=== PATIENT | female | born 1955 | race Caucasian/White ===

== ENCOUNTER 2022-05-30 03:28 | Emergency (ER) | payer MEDICARE, OTHER ==
[~2022-05-30] VITALS: Ht 167.6 cm; Wt 96.4 kg
[2022-05-30] MEDS ORDERED: LORazepam 1 MG tablet PO ONE (03:50)
[2022-05-30] MEDS: meclizine 12.5mg tablet PO ONE ×2 (03:57→04:21)
[2022-05-30] MEDS ORDERED: ondansetron 4mg rapidly disintigrating tab PO ONE (05:45)
[2022-05-30] MEDS ORDERED: ONDA8TAB13 PO (05:59)
[2022-05-30] MEDS ORDERED: proCHLORperazine 10 MG/2 ml inj IM ONE (06:00)
[2022-05-30] MEDS ORDERED: diazepam inj 5 MG/ML inj. IV ONE (07:25)
[2022-05-30] MEDS ORDERED: normal saline 1000ML IV soln IVB ONE (07:25)
[2022-05-30 08:12] VITALS: BP 114/54
== END 2022-05-30 08:48 | disposition home or self-care (01) ==
LOC: ER 03:29
DX: H81.10 Benign paroxysmal vertigo, unspecified ear (principal); R11.2 Nausea with vomiting, unspecified
CPT/HCPCS: 93005; 96361; 96372; 96374; 99284; J0780; J3360; J7030; J8597; 96375